=== PATIENT | female | born 1960 | race Caucasian/White ===

== ENCOUNTER 2022-06-29 14:06 | Emergency (ER) | payer BC, OTHER ==
[~2022-06-29] VITALS: Ht 162.6 cm; Wt 86.8 kg
[2022-06-29 14:07] VITALS: TEMP 97.9
[2022-06-29] MEDS ORDERED: NORCO 325 MG-51 TAB PO (16:51)
[2022-06-29 17:10] VITALS: BP 143/77; PULSE 79
== END 2022-06-29 17:10 | disposition home or self-care (01) ==
LOC: COL.ER 14:06
DX: S43.004A Unspecified dislocation of right shoulder joint, initial encounter (principal); Z86.73 Personal history of transient ischemic attack (TIA), and cerebral infarction without residual deficits; Z28.310 Unvaccinated for COVID-19; Z79.02 Long term (current) use of antithrombotics/antiplatelets; W01.0XXA Fall on same level from slipping, tripping and stumbling without subsequent striking against object, initial encounter
CPT/HCPCS: J2704; J7030

== ENCOUNTER 2023-01-04 16:30 | Outpatient (RCR) | payer OTHER, BC ==
[~2023-01-04 16:30] MED LIST: NORCO 325 MG-51 TAB PO
== END 2023-01-05 | disposition home or self-care (01) ==
LOC: MKS.ESL.OT
DX: G54.0 Brachial plexus disorders (principal)

== ENCOUNTER 2023-02-01 10:30 | Outpatient (RCR) | payer OTHER, BC | END 2023-02-04 | disposition home or self-care (01) | LOC: MKS.ESL.OT | DX: G54.0 Brachial plexus disorders (principal) ==

== ENCOUNTER 2023-05-29 16:00 | Outpatient (RCR) | payer BC | END 2023-06-07 | disposition home or self-care (01) | LOC: MKS.ESL.OT | DX: G54.0 Brachial plexus disorders (principal) ==

== ENCOUNTER 2023-07-06 09:00 | Outpatient (RCR) | payer BC | END 2023-07-07 | disposition home or self-care (01) | LOC: MKS.ESL.OT | DX: G54.0 Brachial plexus disorders (principal) ==

== ENCOUNTER → 2023-09-06 | Outpatient (RCR) | payer BC | END | disposition home or self-care (01) | LOC: MKS.ESL.OT | DX: G54.0 Brachial plexus disorders (principal) ==

== ENCOUNTER 2023-10-05 08:30 | Outpatient (RCR) | payer BC | END 2023-10-07 | disposition home or self-care (01) | LOC: MKS.ESL.OT | DX: G54.0 Brachial plexus disorders (principal) ==

== ENCOUNTER → 2023-11-07 | Outpatient (RCR) | payer BC | END | disposition home or self-care (01) | LOC: MKS.ESL.OT | DX: G54.0 Brachial plexus disorders (principal) ==

== ENCOUNTER 2023-11-28 08:45 | Outpatient (RCR) | payer BC | END 2023-12-06 | disposition home or self-care (01) | LOC: MKS.ESL.OT | DX: G54.0 Brachial plexus disorders (principal) ==

== ENCOUNTER 2024-03-05 08:45 | Outpatient (RCR) | payer BC | END 2024-03-07 | LOC: MKS.ESL.OT | DX: G54.0 Brachial plexus disorders (principal) ==

== ENCOUNTER 2024-04-02 08:45 | Outpatient (RCR) | payer BC | END 2024-04-06 | disposition home or self-care (01) | LOC: MKS.ESL.OT | DX: G54.0 Brachial plexus disorders (principal) ==